=== PATIENT | male | born 1975 | race Caucasian/White ===

== ENCOUNTER → 2017-06-18 | Outpatient (CLI) | payer BC ==
[~2017-06-18] MED LIST: AMLODIPINE10 MG PO; ANAPROX DS550 MG PO; BP MED; CELEXA20 MG PO; CIPRO500 MG PO; EXFORGE 10 MG-11 TAB PO; FLEXERIL5 MG PO; FLOMAX0.4 MG PO; IBU-8800 MG PO; KEFLEX500 MG PO; LEXAPRO20 MG PO; LISINOPRIL20 MG PO; MEDROL DOSEPAK4 MG PO; NORCO 325 MG-101 TAB PO; NORFLEX100 MG PO; PREVACID15 MG PO; PRILOSEC20 M1 PO; TESTOSTERONE; TOBRADEX 0.1%-0.5 ML OPH; VICODIN 5/500 505 MG PO; VOLTAREN50 M1 PO; ZOFRAN ODT4 MG SL; ZYLOPRIM100 MG PO; ZYLOPRIM300 MG PO
== END | disposition home or self-care (01) ==
LOC: US 09:48
DX: H34.01 Transient retinal artery occlusion, right eye (principal); I65.23 Occlusion and stenosis of bilateral carotid arteries

== ENCOUNTER → 2019-09-25 | Outpatient (CLI) | payer OTHER | END | disposition home or self-care (01) | LOC: RESCLI 11:16 | DX: E11.9 Type 2 diabetes mellitus without complications (principal); K21.9 Gastro-esophageal reflux disease without esophagitis; M1A.09X0 Idiopathic chronic gout, multiple sites, without tophus (tophi); I10 Essential (primary) hypertension; E53.8 Deficiency of other specified B group vitamins; E78.5 Hyperlipidemia, unspecified; M54.5 Low back pain; G89.29 Other chronic pain; F32.89 Other specified depressive episodes; Z79.899 Other long term (current) drug therapy; Z90.89 Acquired absence of other organs; Z79.4 Long term (current) use of insulin ==

== ENCOUNTER → 2019-12-04 | Outpatient (CLI) | payer OTHER | END | disposition home or self-care (01) | LOC: RESCLI 01:16 | DX: E11.9 Type 2 diabetes mellitus without complications (principal); K21.9 Gastro-esophageal reflux disease without esophagitis; M1A.09X0 Idiopathic chronic gout, multiple sites, without tophus (tophi); I10 Essential (primary) hypertension; E53.8 Deficiency of other specified B group vitamins; E78.5 Hyperlipidemia, unspecified; M54.5 Low back pain; G89.29 Other chronic pain; F32.89 Other specified depressive episodes; N52.9 Male erectile dysfunction, unspecified; Z79.899 Other long term (current) drug therapy; F17.200 Nicotine dependence, unspecified, uncomplicated; Z88.8 Allergy status to other drugs, medicaments and biological substances ==

== ENCOUNTER → 2020-04-30 | Outpatient (CLI) | payer OTHER | END | disposition home or self-care (01) | LOC: RESCLI 05:43 | DX: Z76.89 Persons encountering health services in other specified circumstances (principal); E11.9 Type 2 diabetes mellitus without complications; K21.9 Gastro-esophageal reflux disease without esophagitis; M1A.09X0 Idiopathic chronic gout, multiple sites, without tophus (tophi); I10 Essential (primary) hypertension; E53.8 Deficiency of other specified B group vitamins; E78.5 Hyperlipidemia, unspecified; M54.5 Low back pain; G89.29 Other chronic pain; F32.89 Other specified depressive episodes; N52.9 Male erectile dysfunction, unspecified; R06.00 Dyspnea, unspecified; Z78.9 Other specified health status ==

== ENCOUNTER → 2020-05-06 | Outpatient (CLI) | payer OTHER ==
[2020-05-06 08:15] LABS: BASO % 0.2 % (0.0-1.0); EOS # 0.5 10*3/uL (0.0-0.4); EOS % 4.9 % (1.0-4.0); HEMATOCRIT 41.9 % (42.0-52.0); LYMPH % 32.7 % (27.0-41.0); MEAN CORPUSCULAR HGB 28.2 pg (27.0-31.0); MEAN CORPUSCULAR HGB CONC 31.7 g/dl (33.0-37.0); MEAN PLATELET VOLUME 10.4 fl (9.6-12.3); MONO # 0.7 10*3/uL (0.1-1.0); MONO % 7.5 % (3.0-9.0); NEUT % 53.9 % (47.0-73.0); PLATELET COUNT AUTOMATED 235 10*3/uL (130-400); RED BLOOD COUNT 4.71 10*6/uL (4.50-5.90); RED CELL DISTRI WIDTH 13.3 % (0-14.5); WHITE BLOOD COUNT 9.2 10*3/uL (4.8-10.8)
[2020-05-06 08:29] LABS: ALBUMIN 3.5 gm/dl (3.1-4.5); ALKALINE PHOSPHATASE 127 U/L (45-117); BUN 15 mg/dl (7-24); CHLORIDE 106 mmol/L (98-107); CHOLESTEROL 154 mg/dL (<200); CREATININE 0.98 mg/dL (0.70-1.30); HDL CHOLESTEROL 28 mg/dl (40-60); LDL CHOLESTEROL 60 mg/dL (9-159); POTASSIUM 4.1 mmol/L (3.5-5.1); SGOT/AST 12 IU/L (3-35); SGPT/ALT 32 U/L (12-78); SODIUM 139 mmol/L (136-145); TOTAL PROTEIN 7.5 gm/dL (6.4-8.2); TRIGLYCERIDES 331 mg/dl (<150); VLDL CHOLESTEROL 66 mg/dL (6-40)
[2020-05-06 08:53] LABS: VITAMIN D, 25-HYDROXY 17.1 ng/mL (30-100)
== END | disposition home or self-care (01) ==
LOC: LAB 07:30
PROVIDERS: Hospitalist
DX: Z76.89 Persons encountering health services in other specified circumstances (principal); I10 Essential (primary) hypertension; E11.9 Type 2 diabetes mellitus without complications

== ENCOUNTER → 2020-05-29 | Outpatient (CLI) | payer OTHER | END | disposition home or self-care (01) | LOC: COVID19 00:58 | PROVIDERS: ATTEND Hospitalist | DX: U07.1 COVID-19 (principal) ==

== ENCOUNTER → 2020-08-22 | Outpatient (CLI) | payer BC | END | disposition home or self-care (01) | LOC: CT 15:48 | PROVIDERS: ATTEND Dentist | DX: M27.40 Unspecified cyst of jaw (principal) ==

== ENCOUNTER → 2020-08-26 | Outpatient (CLI) | payer BC | END | disposition home or self-care (01) | LOC: MRI 11:00 | PROVIDERS: ATTEND Internal Medicine Endocrinology, Diabetes & Metabolism | DX: R79.89 Other specified abnormal findings of blood chemistry (principal) ==

== ENCOUNTER → 2020-09-20 | Outpatient (CLI) | payer BC | END | disposition home or self-care (01) | LOC: RESCLI 08:39 | PROVIDERS: ATTEND Student in an Organized Health Care Education/Training Program | DX: K21.9 Gastro-esophageal reflux disease without esophagitis (principal); E11.65 Type 2 diabetes mellitus with hyperglycemia; E78.2 Mixed hyperlipidemia; E55.9 Vitamin D deficiency, unspecified; R29.1 Meningismus; M1A.09X0 Idiopathic chronic gout, multiple sites, without tophus (tophi); N52.9 Male erectile dysfunction, unspecified; I10 Essential (primary) hypertension; R06.00 Dyspnea, unspecified; Z79.899 Other long term (current) drug therapy; Z88.1 Allergy status to other antibiotic agents ==

== ENCOUNTER → 2020-10-14 | Outpatient (CLI) | payer BC ==
[~2020-10-14] MED LIST changes: +AMARYL4 MG PO; +CIALIS20 MG PO; +COZAAR100 MG PO; +CRESTOR5 MG PO; +HYDR1000 PO; +JARDIANCE25 MG PO; +LANTUS SOL100 UNIT/1 SC; +METFORMIN HCL500 M3 PO; +PAROXETINE20 MG PO; +VICTOZA 2-0.6 MG/0.1 SQ; +VITAMIN D350 MCG PO
== END | disposition home or self-care (01) ==
LOC: RESCLI 14:59
PROVIDERS: ATTEND Internal Medicine Nephrology
DX: K21.9 Gastro-esophageal reflux disease without esophagitis (principal); F32.89 Other specified depressive episodes; M54.5 Low back pain; I10 Essential (primary) hypertension; E78.2 Mixed hyperlipidemia; E11.65 Type 2 diabetes mellitus with hyperglycemia; M1A.09X0 Idiopathic chronic gout, multiple sites, without tophus (tophi); E55.9 Vitamin D deficiency, unspecified; N52.9 Male erectile dysfunction, unspecified; Z79.899 Other long term (current) drug therapy; Z88.8 Allergy status to other drugs, medicaments and biological substances

== ENCOUNTER → 2020-11-25 | Outpatient (CLI) | payer BC | END | disposition home or self-care (01) | LOC: CARD 00:02 | PROVIDERS: ATTEND Internal Medicine Nephrology | DX: I51.7 Cardiomegaly (principal); R53.81 Other malaise ==

== ENCOUNTER → 2021-01-01 | Outpatient (CLI) | payer BC | END | disposition home or self-care (01) | LOC: RESCLI 00:34 | PROVIDERS: ATTEND Emergency Medicine | DX: M1A.09X0 Idiopathic chronic gout, multiple sites, without tophus (tophi) (principal); F32.89 Other specified depressive episodes; E78.2 Mixed hyperlipidemia; E55.9 Vitamin D deficiency, unspecified; K21.9 Gastro-esophageal reflux disease without esophagitis; G89.29 Other chronic pain; N52.9 Male erectile dysfunction, unspecified; E11.65 Type 2 diabetes mellitus with hyperglycemia; G47.33 Obstructive sleep apnea (adult) (pediatric); E66.01 Morbid (severe) obesity due to excess calories; I11.0 Hypertensive heart disease with heart failure; I50.32 Chronic diastolic (congestive) heart failure; Z79.4 Long term (current) use of insulin; Z68.41 Body mass index [BMI] 40.0-44.9, adult; Z79.899 Other long term (current) drug therapy; Z98.890 Other specified postprocedural states; Z88.8 Allergy status to other drugs, medicaments and biological substances ==

== ENCOUNTER → 2021-02-04 | Outpatient (CLI) | payer BC | END | disposition home or self-care (01) | LOC: RESCLI 00:10 | PROVIDERS: ATTEND Internal Medicine | DX: M1A.09X0 Idiopathic chronic gout, multiple sites, without tophus (tophi) (principal); F32.89 Other specified depressive episodes; E78.2 Mixed hyperlipidemia; E55.9 Vitamin D deficiency, unspecified; K21.9 Gastro-esophageal reflux disease without esophagitis; G89.29 Other chronic pain; N52.9 Male erectile dysfunction, unspecified; E11.65 Type 2 diabetes mellitus with hyperglycemia; G47.33 Obstructive sleep apnea (adult) (pediatric); E66.01 Morbid (severe) obesity due to excess calories; I11.0 Hypertensive heart disease with heart failure; I50.32 Chronic diastolic (congestive) heart failure; G62.9 Polyneuropathy, unspecified; F98.8 Other specified behavioral and emotional disorders with onset usually occurring in childhood and adolescence; F41.9 Anxiety disorder, unspecified; Z79.4 Long term (current) use of insulin; Z68.41 Body mass index [BMI] 40.0-44.9, adult; Z79.899 Other long term (current) drug therapy; Z98.890 Other specified postprocedural states ==

== ENCOUNTER → 2021-10-29 | Outpatient (CLI) | payer OTHER | END | disposition home or self-care (01) | LOC: RESCLI 01:56 | PROVIDERS: ATTEND Internal Medicine Nephrology | DX: E78.5 Hyperlipidemia, unspecified (principal); K21.9 Gastro-esophageal reflux disease without esophagitis; M1A.09X0 Idiopathic chronic gout, multiple sites, without tophus (tophi); E11.65 Type 2 diabetes mellitus with hyperglycemia; G62.9 Polyneuropathy, unspecified; F98.8 Other specified behavioral and emotional disorders with onset usually occurring in childhood and adolescence; E29.1 Testicular hypofunction; I11.0 Hypertensive heart disease with heart failure; I50.32 Chronic diastolic (congestive) heart failure; R10.13 Epigastric pain; G47.33 Obstructive sleep apnea (adult) (pediatric); E55.9 Vitamin D deficiency, unspecified; F32.89 Other specified depressive episodes; M54.50 Low back pain, unspecified; N52.9 Male erectile dysfunction, unspecified; Z68.39 Body mass index [BMI] 39.0-39.9, adult; Z88.8 Allergy status to other drugs, medicaments and biological substances; Z98.890 Other specified postprocedural states; Z79.84 Long term (current) use of oral hypoglycemic drugs; Z79.899 Other long term (current) drug therapy ==

== ENCOUNTER → 2021-12-24 | Outpatient (CLI) | payer OTHER | END | disposition home or self-care (01) | LOC: RESCLI 01:54 | PROVIDERS: ATTEND Internal Medicine Nephrology | DX: E11.65 Type 2 diabetes mellitus with hyperglycemia (principal); N52.9 Male erectile dysfunction, unspecified; I10 Essential (primary) hypertension; M1A.09X0 Idiopathic chronic gout, multiple sites, without tophus (tophi); K21.9 Gastro-esophageal reflux disease without esophagitis; E78.2 Mixed hyperlipidemia; E55.9 Vitamin D deficiency, unspecified; E53.8 Deficiency of other specified B group vitamins; F98.8 Other specified behavioral and emotional disorders with onset usually occurring in childhood and adolescence; Z79.899 Other long term (current) drug therapy; Z79.84 Long term (current) use of oral hypoglycemic drugs ==

== ENCOUNTER → 2022-03-25 | Outpatient (CLI) | payer OTHER | END | disposition home or self-care (01) | LOC: RESCLI 00:51 | PROVIDERS: ATTEND Internal Medicine Nephrology | DX: I11.0 Hypertensive heart disease with heart failure (principal); E11.65 Type 2 diabetes mellitus with hyperglycemia; Z79.4 Long term (current) use of insulin; G47.33 Obstructive sleep apnea (adult) (pediatric); E55.9 Vitamin D deficiency, unspecified; E78.2 Mixed hyperlipidemia; I50.32 Chronic diastolic (congestive) heart failure; G89.29 Other chronic pain; N52.9 Male erectile dysfunction, unspecified; E53.8 Deficiency of other specified B group vitamins; K21.9 Gastro-esophageal reflux disease without esophagitis; F41.9 Anxiety disorder, unspecified; K57.92 Diverticulitis of intestine, part unspecified, without perforation or abscess without bleeding; Z79.899 Other long term (current) drug therapy; Z88.8 Allergy status to other drugs, medicaments and biological substances ==

== ENCOUNTER → 2022-07-29 | Outpatient (CLI) | payer OTHER | END | disposition home or self-care (01) | LOC: RESCLI 14:59 | PROVIDERS: ATTEND Student in an Organized Health Care Education/Training Program | DX: I11.0 Hypertensive heart disease with heart failure (principal); I50.32 Chronic diastolic (congestive) heart failure; Z79.4 Long term (current) use of insulin; K21.9 Gastro-esophageal reflux disease without esophagitis; M1A.09X0 Idiopathic chronic gout, multiple sites, without tophus (tophi); G89.29 Other chronic pain; F32.89 Other specified depressive episodes; E11.65 Type 2 diabetes mellitus with hyperglycemia; G47.33 Obstructive sleep apnea (adult) (pediatric); E55.9 Vitamin D deficiency, unspecified; E78.2 Mixed hyperlipidemia; F90.9 Attention-deficit hyperactivity disorder, unspecified type; F98.8 Other specified behavioral and emotional disorders with onset usually occurring in childhood and adolescence; R79.89 Other specified abnormal findings of blood chemistry; E53.8 Deficiency of other specified B group vitamins; G62.9 Polyneuropathy, unspecified; Z68.39 Body mass index [BMI] 39.0-39.9, adult; Z98.890 Other specified postprocedural states; Z82.49 Family history of ischemic heart disease and other diseases of the circulatory system; Z88.8 Allergy status to other drugs, medicaments and biological substances; Z79.84 Long term (current) use of oral hypoglycemic drugs; Z79.899 Other long term (current) drug therapy ==

== ENCOUNTER → 2022-10-06 | Outpatient (CLI) | payer OTHER ==
[2022-10-06 10:03] LABS: BASO % 0.1 % (0.0-1.0); EOS # 0.1 10*3/uL (0.0-0.4); HEMATOCRIT 51.1 % (42.0-52.0); LYMPH % 28.5 % (27.0-41.0); MEAN CELL VOLUME 85.5 fl (80.0-94.0); MEAN CORPUSCULAR HGB 27.9 pg (27.0-31.0); MEAN CORPUSCULAR HGB CONC 32.7 g/dl (33.0-37.0); MEAN PLATELET VOLUME 9.2 fl (9.6-12.3); MONO # 0.5 10*3/uL (0.1-1.0); MONO % 6.8 % (3.0-9.0); NEUT # 4.5 10*3/uL (2.3-7.9); PLATELET COUNT AUTOMATED 236 10*3/uL (130-400); RED BLOOD COUNT 5.98 10*6/uL (4.50-5.90); RED CELL DISTRI WIDTH 13.4 % (0-14.5); WHITE BLOOD COUNT 7.1 10*3/uL (4.8-10.8)
[2022-10-06 10:45] LABS: ALKALINE PHOSPHATASE 121 U/L (46-116); BUN 11 mg/dl (9-23); CHLORIDE 106 mmol/L (98-107); POTASSIUM 4.2 mmol/L (3.4-5.1); SGPT/ALT 18 U/L (10-49); TOTAL PROTEIN 7.5 gm/dL (6.0-8.0)
== END | disposition home or self-care (01) ==
LOC: RESCLI 01:13
PROVIDERS: Student in an Organized Health Care Education/Training Program; ATTEND Student in an Organized Health Care Education/Training Program
DX: K21.9 Gastro-esophageal reflux disease without esophagitis (principal); E11.9 Type 2 diabetes mellitus without complications; M1A.09X0 Idiopathic chronic gout, multiple sites, without tophus (tophi); I10 Essential (primary) hypertension; E78.5 Hyperlipidemia, unspecified; G89.29 Other chronic pain; N52.9 Male erectile dysfunction, unspecified; G47.33 Obstructive sleep apnea (adult) (pediatric); R79.89 Other specified abnormal findings of blood chemistry; F90.9 Attention-deficit hyperactivity disorder, unspecified type; E66.9 Obesity, unspecified; E55.9 Vitamin D deficiency, unspecified; E53.8 Deficiency of other specified B group vitamins; Z79.4 Long term (current) use of insulin; Z98.890 Other specified postprocedural states; Z88.8 Allergy status to other drugs, medicaments and biological substances; Z79.899 Other long term (current) drug therapy

== ENCOUNTER → 2023-06-14 | Outpatient (CLI) | payer OTHER ==
[2023-06-14 08:33] LABS: BILIRUBIN Negative (Negative); BLOOD Negative (Negative); CLARITY Clear (Clear); COLOR Yellow (Yellow); GLUCOSE Negative (Negative); KETONE Trace (Negative); LEUKO ESTERASE Negative (Negative); NITRITE Negative (Negative)
[2023-06-14 08:49] LABS: BASO % 0.1 % (0.0-1.0); EOS # 0.2 10*3/uL (0.0-0.4); EOS % 2.2 % (1.0-4.0); HEMATOCRIT 50.8 % (42.0-52.0); LYMPH # 2.5 10*3/uL (1.3-4.4); LYMPH % 34.9 % (27.0-41.0); MEAN CORPUSCULAR HGB 28.2 pg (27.0-31.0); MEAN CORPUSCULAR HGB CONC 31.7 g/dl (33.0-37.0); MEAN PLATELET VOLUME 10.9 fl (9.6-12.3); MONO # 0.5 10*3/uL (0.1-1.0); MONO % 6.7 % (3.0-9.0); NEUT # 4.1 10*3/uL (2.3-7.9); PLATELET COUNT AUTOMATED 203 10*3/uL (130-400); RED BLOOD COUNT 5.71 10*6/uL (4.50-5.90); RED CELL DISTRI WIDTH 13.6 % (0-14.5); RETICULOCYTE % 1.42 % (0.50-2.50); WHITE BLOOD COUNT 7.3 10*3/uL (4.8-10.8)
[2023-06-14 09:05] LABS: MUCOUS 1+; WBC 0-2 wbc/hpf (0-5)
[2023-06-14 09:15] LABS: ALKALINE PHOSPHATASE 113 U/L (46-116); BUN 11 mg/dl (9-23); CHLORIDE 106 mmol/L (98-107); CHOLESTEROL 130 mg/dL (<200); GAMMA GLUTAMYL TRANSPEPTIDASE 31 U/L (0-73); LDL CHOLESTEROL 70 mg/dL (9-159); POTASSIUM 4.1 mmol/L (3.4-5.1); SGPT/ALT 23 U/L (10-49); T3 UPTAKE 27.4 % (22.4-36.7); THYROXINE (T4) TOTAL 7.2 ug/dl (4.5-10.9); TOTAL PROTEIN 6.8 gm/dL (6.0-8.0); TRIGLYCERIDES 136 mg/dl (<150); VITAMIN D, 25-HYDROXY 49.5 ng/mL (30-100)
== END | disposition home or self-care (01) ==
LOC: LAB 07:36
PROVIDERS: ATTEND Family Medicine
DX: E78.5 Hyperlipidemia, unspecified (principal); R79.89 Other specified abnormal findings of blood chemistry; R53.83 Other fatigue; E55.9 Vitamin D deficiency, unspecified

== ENCOUNTER 2023-12-31 16:46 | Emergency (ER) | payer OTHER ==
[~2023-12-31] VITALS: Ht 182.8 cm; Wt 111.1 kg
[2023-12-31] MEDS ORDERED: FAMOTIDINE 50 ML IV ONE (17:05)
[2023-12-31] MEDS ORDERED: MORPHINE Sulfate 2 MG/ML SYR IV ONE (17:05)
[2023-12-31] MEDS ORDERED: Ondansetron Hydrochloride 4 MG/2 ML VIAL IV ONE (17:05)
[2023-12-31] MEDS ORDERED: IOHEXOL 300 MG/ML 100 ML VIAL IV ONE (17:15)
[2023-12-31] MEDS ORDERED: MORPHINE Sulfate 2 MG/ML SYR ONE (17:19)
[2023-12-31 17:28] LABS: BASO % 0.3 % (0.0-1.0); EOS # 0.2 10*3/uL (0.0-0.4); EOS % 1.9 % (1.0-4.0); LYMPH # 4.2 10*3/uL (1.3-4.4); LYMPH % 40.1 % (27.0-41.0); MEAN CELL VOLUME 88.8 fl (80.0-94.0); MEAN CORPUSCULAR HGB 29.7 pg (27.0-31.0); MEAN CORPUSCULAR HGB CONC 33.4 g/dl (33.0-37.0); MEAN PLATELET VOLUME 9.6 fl (9.6-12.3); MONO # 0.8 10*3/uL (0.1-1.0); MONO % 7.4 % (3.0-9.0); NEUT # 5.3 10*3/uL (2.3-7.9); NEUT % 50.2 % (47.0-73.0); PLATELET COUNT AUTOMATED 220 10*3/uL (130-400); RED BLOOD COUNT 5.63 10*6/uL (4.50-5.90); RED CELL DISTRI WIDTH 12.8 % (0-14.5); WHITE BLOOD COUNT 10.5 10*3/uL (4.8-10.8)
[2023-12-31 17:50] LABS: ALKALINE PHOSPHATASE 113 U/L (46-116); BUN 10 mg/dl (9-23); CHLORIDE 103 mmol/L (98-107); LIPASE 42 U/L (12-53); POTASSIUM 3.8 mmol/L (3.4-5.1); SGPT/ALT 28 U/L (5-49); TOTAL PROTEIN 7.4 gm/dL (6.0-8.0)
[2023-12-31] MEDS ORDERED: Dicyclomine Hydrochloride 20 MG/10 ML OSYR PO STA (17:58)
[2023-12-31] MEDS ORDERED: MG-AL HYDROXIDE/SIMETICONE 30 ML UDC PO STA (17:58)
[2023-12-31] MEDS ORDERED: Lidocaine Hydrochloride 15 ML UDC PO STA (17:58)
[2023-12-31] MEDS ORDERED: METRONIDAZOLE 500 MG TAB PO ONE (19:25)
[2023-12-31] MEDS ORDERED: Ciprofloxacin Hydrochloride 500 MG TAB PO ONE (19:25)
[2023-12-31] MEDS ORDERED: CIPRO500 MG PO (19:42)
[2023-12-31] MEDS ORDERED: METRONIDAZOLE500 M1 PO (19:42)
[2023-12-31] MEDS ORDERED: PEPCID40 MG PO (19:42)
== END 2023-12-31 19:44 | disposition home or self-care (01) ==
LOC: ED 16:46
PROVIDERS: Nurse Practitioner
DX: K57.32 Diverticulitis of large intestine without perforation or abscess without bleeding (principal); F32.A Depression, unspecified; I10 Essential (primary) hypertension; K21.9 Gastro-esophageal reflux disease without esophagitis; E78.00 Pure hypercholesterolemia, unspecified; E11.9 Type 2 diabetes mellitus without complications; M10.9 Gout, unspecified; M19.90 Unspecified osteoarthritis, unspecified site; Z98.890 Other specified postprocedural states

== ENCOUNTER → 2024-04-05 | Outpatient (CLI) | payer OTHER ==
[~2024-04-05] MED LIST changes: +METRONIDAZOLE500 M1 PO; +PEPCID40 MG PO
== END | disposition home or self-care (01) ==
LOC: RESCLI 02:48
PROVIDERS: ATTEND Internal Medicine
DX: I10 Essential (primary) hypertension (principal); E11.9 Type 2 diabetes mellitus without complications; K21.9 Gastro-esophageal reflux disease without esophagitis; M1A.09X0 Idiopathic chronic gout, multiple sites, without tophus (tophi); N52.9 Male erectile dysfunction, unspecified; R79.89 Other specified abnormal findings of blood chemistry; F90.9 Attention-deficit hyperactivity disorder, unspecified type; F41.9 Anxiety disorder, unspecified; F32.A Depression, unspecified; M62.838 Other muscle spasm; M19.90 Unspecified osteoarthritis, unspecified site; Z79.899 Other long term (current) drug therapy